=== PATIENT | male | born 1990 | race Caucasian/White ===

== ENCOUNTER 2022-06-23 20:43 | Emergency (ER) | payer SELFPAY ==
[~2022-06-23] VITALS: Ht 170.2 cm; Wt 72.0 kg
[2022-06-23 20:49] VITALS: BP 115/112
== END 2022-06-24 08:04 | disposition left against medical advice (07) ==
LOC: ER 20:43
DX: Z53.21 Procedure and treatment not carried out due to patient leaving prior to being seen by health care provider (principal)